=== PATIENT | male | born 1965 | race Native Hawaiian/Other Pacific Islander ===

== ENCOUNTER 2017-10-07 06:05 | Day surgery (SDC) | payer OTHER ==
[~2017-10-07] VITALS: Ht 185.4 cm; Wt 103.9 kg
[~2017-10-07 06:05] MED LIST: GABA300C3 PO; LISI-360 PO; MELO15
[2017-10-07] MEDS ORDERED: IOHEXOL 350 MG/ML 50 ML BTL (for Cath Lab) OTHER ONE (06:06)
[2017-10-07] MEDS ORDERED: NS 1000P @30 MLS/HR (KVO) IV SCH (06:30)
[2017-10-07 06:42] VITALS: BP 142/92; PULSE 58; RESP 18; TEMP 98; O2SAT 97
[2017-10-07] MEDS ORDERED: GABA800T PO (06:52)
[2017-10-07] MEDS ORDERED: METH500T3 PO (06:52)
[2017-10-07] MEDS ORDERED: TUMS500C CHEW (06:52)
[2017-10-07] MEDS ORDERED: TRAM50TA PO (06:52)
[2017-10-07] MEDS ORDERED: FLUT50SP EACH NARE (06:52)
[2017-10-07] MEDS ORDERED: GLUC500C36 PO (06:52)
[2017-10-07] MEDS ORDERED: ATOR40TA16 PO (06:52)
[2017-10-07] MEDS ORDERED: PANT40TA3 PO (06:52)
[2017-10-07] MEDS ORDERED: MELO15TA20 PO (06:52)
[2017-10-07] MEDS ORDERED: TAMS0.4C4 PO (06:52)
[2017-10-07 07:15] LABS: CALCIUM 8.7 MG/DL (8.5-10.1); CREATININE 1.23 MG/DL (0.60-1.30)
[2017-10-07] MEDS ORDERED: HEPARIN-NS/PF FLUSH BAG 2,000 ML IV FLUSH ONE (08:32)
[2017-10-07] MEDS ORDERED: MIDAZOLAM HCL 2 MG/2 ML VIAL ONE (08:32)
[2017-10-07] MEDS ORDERED: HEPARIN SODIUM - IV 10,000 UNITS/10 ML VIAL ONE (08:33)
[2017-10-07] MEDS ORDERED: NITROGLYCERIN INJ 5 ML ONE (08:33)
--- NOTE | 2017-10-07 09:10 | CATHPROC ---
[facility] HIS Report Study Information Study Number Admission Scheduled Start Study Start [id number] Oct 07 2017 6:05AM 10/07/2017 Oct 07 2017 8:11AM [place] [facility] Cardiac Catheterization Admit Source Facility Department Other [facility] Physician and Clinical Staff Initial Juan Perez Button Sewing Machine Operator Marci Booth,RT(R) Recorder Jose Mancini,RT(R) Scrub Virginia Hart RN Procedures Performed Procedure Location (Site) Vessel Name Coronary Angiograms LCA Left Coronary Coronary Angiograms RCA Right Coronary L Heart Cath Wire insertion Radial (right) Radial Art. Equipment Time Gum Dipper Description Size Mfg Part Number Used/Scraped TRANSDUCER, TRUWAVE [id number] 08:13 CHAMBERLAIN DUMAS * Used W/STOCKCOCK *[id number] *[id number] 08:13 [employer] PACK, CCL CUSTOM * Used *[id number] 08:13 [employer] SUPPORT, ARTERIAL ADULT 82752 *[id number] Used [id number] 08:13 [employer] PACER PEN, SKIN DUAL W/ RULER * Used *[id number] 08:49 [employer] JR 5.0 DXTERITY CATHETER fr 5 [id number] Used BAND, RADIAL COMPRESSION TR [id number] 09:02 [employer] 29CM Used LARGE 29 *[id number] SHEATH, FR6 RADIAL PRELUDE 08:13 [email or web address] MEDICAL FR 6 [id number] Used EASE 11CM [id number] 08:13 [employer] WIRE, EXCHANGE 260CM 3MMJ 260CM Used *[id number] 08:13 [employer] OMNIPAQUE, 350 MG, 150ML 150ML [id number] Used [id number] 08:13 [employer] BLANKET,WARM AIR CCL * Used *[id number] Equipment Model, Serial, Lot Number and Expiration Data Description Model Number Serial Number Lot Number Expiration Date JR 5.0 DXTERITY CATHETER [id number] 02-14-2020 History: Current Medications Medication Dosage/Unit Route Frequency Last Date/Time Taken Statins (any) TRAMADOL History: Allergies Allergy Reaction penicillin G morphine naloxone History: Risk Factors Family History of Hypertension Dyslipidemia Previous [place] Previous Heart Failure Premature CAD Yes Yes No No No Prior Valve Prior PCI Prior CABG Surgery No No No Cerebrovascular Peripheral Artery Chronic Lung On Dialysis Diabetes Disease Disease Disease No No No No No History: Symptoms/Diagnosis Selection Items SOB History: Stress Tests Stress or Imaging Studies Performed Yes Standard Exercise Stress Test No Stress Echo No Stress Test SPECT Stress Test SPECT Result Stress Test SPECT Ischemia Risk/Extent Yes Positive Intermediate Stress Test CMR No Cardiac CTA Coronary Calcium Score No No History: Other Disease Selection Items Gerd HTN History: Other Current Smoker No Labs Hgb (g/dl) Hct (%) RBC (MIL/MM3) WBC (l/cumm) Platelets (thousands) 11.60-17.00 35.00-51.00 4.00-5.90 4.00-11.00 150.00-450.00 14.4 43.2 4.7 5.5 200 Glucose (mg/dl) BUN (mg/dl) Creatinine (mg/dl) BUN:Creatinine (1:x) 74.00-106.00 7.00-18.00 0.50-1.30 10.00-20.00 107 16 1.2 13.3 Na (meq/l) K (meq/l) Cl (meq/l) CO2 (mmol/L) Ca (mg/dl) 136.00-145.00 3.50-5.10 98.00-107.00 21.00-32.00 8.50-10.10 141 3.9 108 28 8.7 PT (sec) INR (PTT:PT) 9.80-11.60 0.90-1.10 10.4 1 CPK-MB (ng/ML) 0.50-3.60 Not Drawn Medication Medication Total Dose (Bolus/Oral) Medication Total Dosage/Unit 1% XYLOCAINE 5 mL FENTANYL 50 mcg HEPARIN 3000 units NTG (IC) 100 mcg VERSED 2 mg Medications (Bolus/Oral) Medication Time Given Dosage/Unit Administered By Reason VERSED 10/07/2017 8:42:33 AM 2 mg Virginia Hart 2 mg VERSED given in lab by Virginia Hart, MISBAH in Left Forearm via Peripheral IV. Ordered by Juan Fry. FENTANYL 10/07/2017 8:43:08 AM 50 mcg Virginia Hart 50 mcg FENTANYL given in lab by Virginia Hart, RN in Left Forearm via Peripheral IV. Ordered by Juan Chen. 1% XYLOCAINE 10/07/2017 8:46:31 AM 5 mL Juan Fry 5 mL 1% XYLOCAINE given in lab by Juan Fry in Right Radial via Subcutaneous. Ordered by Juan Fry. NTG (IC) 10/07/2017 8:53:21 AM 100 mcg Juan Fry 100 mcg NTG (IC) given in lab by Juan Fry in Right Radial via Intra-arterial. Ordered by Juan Fry. HEPARIN 10/07/2017 8:53:52 AM 3000 units Virginia Hart 3000 units HEPARIN given in lab by Virginia Hart RN in Left Forearm via Peripheral IV. Ordered by Juan Fry. Medication (Drip) Medication Time Given Dosage/Unit Concentration/Unit Diluent (ml) Solution IV Solutions 10/07/2017 8:31:23 AM 0 mL (IV) 500 NaCl .9 IV Solutions given in lab by Virginia Hart RN in Left Forearm via Peripheral IV. Pump/Drip Flow = 20 ml/hr using NaCl .9. Initial Case Assessment Cardiovascular HR Rhythm NIBP Chest Pain 56 Sinus/ Derrick 129/89 0 Edema Present Skin color Skin None Normal Warm Dry Circulatory - Right Pulses Dorsalis Pedis Femoral Radial 2 2 2 Scale (0,1,2,3,4,d) Scale (0,1,2,3,4,d) Neurological State Oriented to time-place- Alert Moves all extremities person Respiration - General Respiration Rate SpO2 (%) O2 (lpm) (B/min) 19 96 0 Final Case Assessment Cardiovascular HR Rhythm NIBP Chest Pain 68 Sinus/Derrick 113/72 0 Edema Present Skin color Skin None Normal Warm Dry Circulatory - Right Pulses Dorsalis Pedis Femoral Radial 2 2 2 Scale (0,1,2,3,4,d) Scale (0,1,2,3,4,d) Neurological State Oriented to time-place- Alert Moves all extremities person Respiration - General Respiration Rate SpO2 (%) O2 (lpm) (B/min) 20 97 0 Chronological Log Time Study Chronological Log 8:20:38 Patient arrived via Bed. 8:30:45 Patient Name, D.O.B, / Armband Verified By R.N. 8:30:46 Consent signed by the physician and the patient and verified by the [facility] staff. 8:30:46 Pre-op and post- op instructions given; patient acknowledges understanding of instructions. 8:30:47 Verbal Stimulation=2 Physical Stimulation=2 Airway=2 Respiration=2 TOTAL=8. (0=absent, 1=avilez ited, 2=present) 8:30:59 Presedation assessment performed by [facility] RN. 8:31:00 Allens test performed on the right radial and ulnar artery. 8:31:03 Patient has been NPO for More than 6Hrs. 8:31:04 Skin Breakdown- none per patient. 8:31:13 Patient Warmer Placed on the Table. 8:31:15 Oseas Prominences Protected 8:31:16 A # 20 IV was noted in the Forearm (left). Grade = 0 IV Solutions given in lab by Virginia Hart, RN in Left Forearm via Peripheral IV. Pump/Drip Fl ow = 20 ml/hr using 8:31:23 NaCl .9. 8:31:45 History and physical on the chart or being dictated. Assessment: Initial Case, HR=56 BPM, Rhythm=Sinus/ Derrick, QGWS=989/89 mmhg, Chest Pain=0, Edema= None, Color=Normal, Skin = Warm, Dry 8:31:46 Right Pulses: Trip Ped=2, Femoral=2, Radial=2 Neurological: State=Alert, Ox3, NICOLAS Respiration: Resp=19 B/min, SpO2=96 %, O2=0 lpm Vitals capture started with the following parameters, Patient=Adult, Interval=5 min, Initial Pre yzqln=294 mmHg, 8:31:48 Deflation Rate=5 mmHg, Cuff placed on Left Arm 8:32:19 HR=62 bpm, PWQS=280/89 mmhg, SpO2=97.0 %, Resp=18 B/min, Pain=0, Delphine=10, Jackson=2 8:32:51 Reference ECG taken 8:37:22 HR=55 bpm, FNAC=307/86 mmhg, SpO2=96.0 %, Resp=14 B/min, Pain=0, Delphine=10, Jackson=2 8:40:55 Right Radial and groin(s) prepped with 2% chlorhexidine, and draped after a 3 min. waiting t jocelin. 8:41:40 MD arrived. 8:42:33 2 mg VERSED given in lab by Virginia Hart, RN in Left Forearm via Peripheral IV. Ordered Juan Song. 8:43:05 HR=60 bpm, AUOC=855/76 mmhg, SpO2=97.0 %, Resp=21 B/min, Pain=0, Delphine=10, Jackson=2 8:43:08 50 mcg FENTANYL given in lab by Virginia Hart, RN in Left Forearm via Peripheral IV. Order ed by Juan Fry. Time Out. Correct patient, correct procedure, correct physician, power injector not loaded with contrast with surgical 8:44:05 team present. Time Out Concurred by MD and individual staff in procedure. 8:45:27 Case Start 8:46:31 5 mL 1% XYLOCAINE given in lab by Juan Fry in Right Radial via Subcutaneous. Ordered b y Juan Fry. 8:47:23 HR=58 bpm, GEUF=866/78 mmhg, Resp=13 B/min, Pain=0, Delphine=10, Jackson=2 8:47:25 Pressure channel 1 zeroed. 8:51:02 Access site was Radial Artery. A SHEATH, FR6 RADIAL PRELUDE EASE 11CM FR 6 was advanced into the Radial (right) using the Tor landers 8:51:09 technique. 8:52:22 HR=54 bpm, AXOZ=509/73 mmhg, MdK8=084.0 %, Resp=14 B/min, Pain=0, Delphine=10, Jackson=2 8:53:21 100 mcg NTG (IC) given in lab by Juan Fry in Right Radial via Intra-arterial. Ordered by Juan Fry. 8:53:52 3000 units HEPARIN given in lab by Virginia Hart, RN in Left Forearm via Peripheral IV. Or dered by Juan Fry. A JR 5.0 DXTERITY CATHETER fr 5 was advanced over a wire. OMNIPAQUE, 350 MG, 150ML 150ML was use d for 8:54:44 injections. Recorded Pressure: LV, HR=66, Condition=Condition 1 8:55:34 (Left Ventricle) LV 114/-3/8 Recorded Pressure: LV, Ao, HR=64, Condition=Condition 1 8:55:39 (Left Ventricle) LV 113/0/8, (Aorta) Ao 98/69/80 Recorded Pressure: Ao, HR=63, Condition=Condition 1 8:56:00 (Aorta) Ao 96/69/83 8:56:36 The RCA was injected and visualized at various angles. OMNIPAQUE, 350 MG, 150ML 150ML use d. 8:57:25 HR=62 bpm, GCGB=550/62 mmhg, SpO2=95.0 %, Resp=21 B/min, Pain=0, Delphine=10, Jackson=2 After removing the current catheter a JL 3.5 INFINITI CATHETER FR 6 was advanced over a WIRE, EXCHANGE 260CM 8:57:45 3MMJ 260CM. 8:57:59 Wire removed 8:59:37 The LCA was injected and visualized at various angles. OMNIPAQUE, 350 MG, 150ML 150ML use d. 9:01:11 A WIRE, EXCHANGE 260CM 3MMJ 260CM was inserted via Radial (right). 9:01:24 Catheter was removed 9::25 Wire removed 9::36 Case End 9::53 No case complications noted. 9:01:54 Cine recording checked. 9:02:21 Bedside Report will be given. 9:02:24 HR=68 bpm, DAOT=513/72 mmhg, SpO2=93.0 %, Resp=20 B/min, Pain=0, Delphine=10, Jackson=2 Assessment: Final Case, HR=68 BPM, Rhythm=Sinus/Derrick, TGUT=707/72 mmhg, Chest Pain=0, Edema=N one, Color=Normal, Skin = Warm, Dry 9:03:14 Right Pulses: Trip Ped=2, Femoral=2, Radial=2 Neurological: State=Alert, Ox3, NICOLAS Respiration: Resp=20 B/min, SpO2=97 %, O2=0 lpm Radial Compression Device Used. 11 mLs of air placed in BAND, RADIAL COMPRESSION TR LARGE 29 2 9CM. Affected 9:04:27 hand 97 % O2 saturation. 9:06:42 A Left Heart Cath was performed. 9:07:28 Vitals capture stopped. 9:10:27 Patient moved to [facility] End Study - Contrast Media Used In Study Contrast Total Opened (mL) Total Used (mL) Total Wasted (mL) Omnipaque 150 25 125 End Study - Maximum Contrast Load Max Contrast Load (mL) 433.0 End Study - Radiation Exposure Fluoro Time (minutes) 1.5 End Study - Patient Disposition Complications Transferred To Interventional Outcome No Outpatient Bed No attempt made
--- NOTE | 2017-10-07 12:02 | MA ---
cc: Juan Fry MD 10/07/2017 INDICATION: Intermediate risk abnormal stress test. PROCEDURE PERFORMED: 1. Fluoroscopy with interpretation. 2. Left heart catheterization. 3. Coronary angiography. METHOD: Risks, benefits and alternatives were discussed with the patient. The patient understood and consented to the procedure. The patient was brought into the catheterization lab and placed on the catheterization table. The right wrist was prepped and draped in sterile fashion. The right wrist was anesthetized with 2% lidocaine. The right radial artery was cannulated and a 6-Belarusian, 7 cm sheath was placed without difficulty. A 200 mcg of intravenous nitroglycerin was administered and 3000 units of intravenous heparin was administered. LEFT HEART CATHETERIZATION: Intraventricular hemodynamics measured at 113/8 mmHg. CORONARY ANGIOGRAPHY: 1. Left main coronary is angiography normal. 2. Left anterior descending coronary is large caliber size vessel, it extends down to the apex, several smaller diagonal branches angiographically normal. 3. Left circumflex gives rise to two obtuse marginal branches and angiographically normal. 4. Right coronary is dominant vessel giving rise to posterior descending branch, angiographically normal. CONCLUSIONS: 1. Angiographically normal coronary arteries. 2. Normal left-sided filling pressure. PLAN: The patient's symptoms are not obstructive coronary disease. Stress test was false positive. He can follow up with his primary care doctor in the outpatient setting. Juan Fry MD MEHDI/TL/ , 09:06 AM , 10:52 AM [facility]
--- NOTE | 2017-10-07 21:59 | EKG ---
Date Performed: 10/07/2017 Time Performed: 07:07:04 PTAGE: 52 years EKG: Sinus bradycardia. Normal ECG except for rate NO PREVIOUS TRACING DOCTOR: Vicky Carver Interpretating Date/Time 10/07/2017 21:57:47
== END 2017-10-07 12:04 | disposition home or self-care (01) ==
LOC: HDOC 06:05 → HDIC 06:06 → HDOC 12:04
PROVIDERS: ATTEND Internal Medicine
DX: R94.39 Abnormal result of other cardiovascular function study (principal); Z01.810 Encounter for preprocedural cardiovascular examination
CPT/HCPCS: 80048; 86850; 86900; 86901; 93005; 93458; 99152; 99153; C1769; C1893; J1644; J2250; J3010; J7030; Q9967